=== PATIENT | male | born 1985 | race American Indian/Alaskan Native ===

== ENCOUNTER → 2020-10-19 14:07 | Outpatient (BNVA) | payer OTHER, SELFPAY | PROVIDERS: PCP Internal Medicine; Referring Provider Internal Medicine; Visit Provider Nurse Practitioner | DX: Z76.89 Persons encountering health services in other specified circumstances (principal) ==

== ENCOUNTER → 2020-11-30 09:25 | Outpatient (BNVA) | payer OTHER, SELFPAY | PROVIDERS: PCP Internal Medicine; Visit Provider Nurse Practitioner ==

== ENCOUNTER → 2020-12-28 08:42 | Outpatient (BNVA) | payer OTHER, SELFPAY | PROVIDERS: PCP Internal Medicine; Visit Provider Nurse Practitioner ==

== ENCOUNTER → 2021-01-17 10:53 | Outpatient (BNVA) | payer OTHER, SELFPAY | PROVIDERS: PCP Internal Medicine; Visit Provider Nurse Practitioner ==

== ENCOUNTER 2021-02-28 11:24 | Outpatient (REF) | payer OTHER, SELFPAY ==
[2021-02-28 13:02] LABS: COVID-19 Test Negative (Negative)
== END 2021-02-28 11:25 | disposition home or self-care (01) ==
LOC: HO.LAB 11:24
PROVIDERS: Visit Provider Internal Medicine
DX: Z20.822 Contact with and (suspected) exposure to COVID-19 (principal)
CPT/HCPCS: 36415; 87635; C9803

== ENCOUNTER 2021-03-04 12:51 | Outpatient (REF) | payer OTHER, SELFPAY ==
[2021-03-04 13:42] LABS: COVID-19 Test Negative (Negative)
== END 2021-03-04 12:52 | disposition home or self-care (01) ==
LOC: HO.LAB 12:51
PROVIDERS: Visit Provider Internal Medicine
DX: Z20.822 Contact with and (suspected) exposure to COVID-19 (principal)
CPT/HCPCS: 36415; 87635; C9803; U0003; U0005

== ENCOUNTER 2021-03-21 14:28 | Outpatient (REF) | payer OTHER, SELFPAY | END 2021-03-21 14:29 | disposition home or self-care (01) | LOC: HO.LAB 14:28 | PROVIDERS: Visit Provider Internal Medicine | DX: Z20.822 Contact with and (suspected) exposure to COVID-19 (principal) | CPT/HCPCS: C9803; U0003; U0005 ==

== ENCOUNTER 2021-07-01 10:01 | Outpatient (REF) | payer OTHER, SELFPAY | END 2021-07-01 10:02 | disposition home or self-care (01) | LOC: HO.LAB 10:01 | PROVIDERS: PCP Internal Medicine; Visit Provider Internal Medicine | DX: Z20.822 Contact with and (suspected) exposure to COVID-19 (principal) | CPT/HCPCS: C9803; U0003; U0005 ==

== ENCOUNTER 2021-11-15 10:17 | Outpatient (REF) | payer OTHER, SELFPAY ==
[2021-11-15 11:31] LABS: Binax Now Covid-19 Ag Positive (Negative)
[2021-11-15 11:32] LABS: Binax Internal Control QC Valid
== END 2021-11-15 10:18 | disposition home or self-care (01) ==
LOC: HO.LAB 10:17
PROVIDERS: Visit Provider Internal Medicine
DX: Z20.822 Contact with and (suspected) exposure to COVID-19 (principal)
CPT/HCPCS: 36415; C9803

== ENCOUNTER 2022-10-18 10:59 | Emergency (ER) | payer OTHER, SELFPAY ==
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
[2022-10-18 11:19] VITALS: BP 136/84; BP 141/87; PULSE 90; PULSE 92; RESP 18; TEMP 36.3; O2SAT 100; BMI 26.7
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
[2022-10-18] MEDS: 0.9 % Sodium Chloride 1,000 ML 999 ML IV (11:41)
[2022-10-18 11:44] LABS: MANUAL DIFF FLAG NO
[2022-10-18 11:47] LABS: Basophils Absolute Auto 0.1 X10*3/uL (0.0-0.2); Eosinophils Absolute Auto 0.1 X10*3/uL (0.0-0.4); Eosinophils Percent Auto 0.5 % (0-4); Hematocrit 46.4 % (42.0-52.0); Hemoglobin 15.6 g/dl (14.0-18.0); Imm Gran Abs Auto 0.03 X10*3/uL (0.00-0.03); Imm Gran Pct Auto 0.3 % (0.0-0.4); Lymphocytes Absolute Auto 2.4 X10*3/uL (1.2-4.9); Lymphocytes Percent Auto 23.4 % (20-40); Mean Corpuscular HGB Conc 33.6 g/dl (31.0-36.0); Mean Corpuscular Hemoglobin 31.7 pg (27.0-33.0); Mean Corpuscular Volume 94.3 fL (80.0-98.0); Mean Platelet Volume 8.9 fL (9.4-12.4); Monocytes Absolute Auto 0.8 X10*3/uL (0.1-1.2); Monocytes Percent Auto 8.2 % (2-11); Neutrophils Absolute Auto 6.8 x10*3/uL (2.0-8.3); Neutrophils Percent Auto 66.6 % (45-73); Platelet Count 302 X10*3/uL (160-400); Red Blood Count 4.92 X10*6/uL (4.60-5.80); Red Cell Distribution Width 14.8 % (11.0-16.0); White Blood Count 10.2 X10*3/uL (4.8-10.8)
[2022-10-18 11:51] LABS: INTERNATIONAL NORM RATIO 0.9 (0.9-1.1); Prothrombin Time 10.8 SEC (10.0-13.1)
[2022-10-18 11:59] LABS: COVID-19 Test Negative (Negative); IDNOW Serial# 16C4AD1C
[2022-10-18 12:03] LABS: Alanine Aminotransferase 14 U/L (0-40); Albumin Level 4.4 g/dL (3.5-5.0); Alkaline Phosphatase 114 U/L (39-117); Anion Gap 14 (12-20); Aspartate Amino Transferase 34 U/L (5-37); Bilirubin Direct 0.2 mg/dL (0.0-0.5); Bilirubin Total 0.4 mg/dL (0.0-1.0); Blood Urea Nitrogen 8 mg/dL (9-16); Calcium 9.4 mg/dL (8.4-10.2); Carbon Dioxide 33 mmol/L (22-29); Chloride 105 mmol/L (96-108); Creatinine Clr Calc Pharmacy 92.2; Estimated Glomerular Filt Rate > 60; Ethanol 216 mg/dL; Glucose Random 105 mg/dL (60-115); Lipase 198 U/L (8-78); Magnesium 2.3 mg/dL (1.6-2.6); Potassium 4.1 mmol/L (3.3-5.1); Sodium 148 mmol/L (135-145); Total Protein 7.2 g/dL (6.5-8.0)
[2022-10-18 13:39] VITALS: BP 130/62; PULSE 93; RESP 18; TEMP 36.6; O2SAT 98
--- NOTE | 2022-10-18 13:44 | PC.NURSE ---
Report has been given to GLORIA Enriquez RN . Patient awaiting transport by EMS . patient aware of plan of care .
--- NOTE | 2022-10-18 13:51 | MHC.EDTECH ---
pt will be transferd to [facility] ed.Ambulance is booked with Lisa for a ALS transfer at 1400. RN aware of plan.
[2022-10-18] MEDS: LORazepam 1 MG TABLET PO (14:14)
== END 2022-10-18 14:51 | disposition short-term general hospital (02) ==
PROVIDERS: Physician Assistant; Emergency Provider Emergency Medicine
DX: S06.5XAA Traumatic subdural hemorrhage with loss of consciousness status unknown, initial encounter (principal); S06.2XAA Diffuse traumatic brain injury with loss of consciousness status unknown, initial encounter; Y04.8XXA Assault by other bodily force, initial encounter; F10.120 Alcohol abuse with intoxication, uncomplicated; Y90.7 Blood alcohol level of 200-239 mg/100 ml; G51.0 Bell's palsy; Z20.822 Contact with and (suspected) exposure to COVID-19; Y93.9 Activity, unspecified; Y92.9 Unspecified place or not applicable; Y99.9 Unspecified external cause status; Z79.899 Other long term (current) drug therapy
CPT/HCPCS: 36415; 70450; 72125; 80048; 80076; 82077; 83690; 83735; 85025; 85610; 87635; 96360; 96361; 99284; 99285

== ENCOUNTER 2024-02-05 08:55 | Emergency (ER) | payer OTHER, SELFPAY ==
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
[2024-02-05 09:23] VITALS: BP 112/80; PULSE 57; RESP 16; TEMP 36.6; O2SAT 97; BMI 25.1
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
[2024-02-05] MEDS: Butalb/Acetamin/Caff 50/325/40 TABLET 1 TAB PO (12:15)
[2024-02-05 12:31] VITALS: BP 115/68; PULSE 85; RESP 20; TEMP 37; O2SAT 100
== END 2024-02-05 12:31 | disposition home or self-care (01) ==
PROVIDERS: Emergency Provider Student in an Organized Health Care Education/Training Program; PCP Internal Medicine
DX: R51.9 Headache, unspecified (principal); Z87.828 Personal history of other (healed) physical injury and trauma
CPT/HCPCS: 70450; 99284

== ENCOUNTER 2024-02-24 14:45 | Outpatient (AMB) | payer OTHER, SELFPAY ==
[2024-02-24 15:01] VITALS: BP 112/70; BMI 25.0
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
== END 2024-02-24 15:39 | disposition home or self-care (01) ==
PROVIDERS: PCP Internal Medicine; Visit Provider Internal Medicine
DX: R51.9 Headache, unspecified (principal); F17.210 Nicotine dependence, cigarettes, uncomplicated
CPT/HCPCS: 99213

== ENCOUNTER 2024-06-03 09:35 | Emergency (ER) | payer OTHER, SELFPAY ==
[2024-06-03 09:45] VITALS: BP 114/74; PULSE 79; RESP 16; TEMP 36.9; O2SAT 95; BMI 25.8
--- NOTE | 2024-06-03 11:06 | ED.EYEPROB ---
HPI - Eye Problem General Chief complaint: Eye Problems Stated complaint: bump on eye Time Seen by Provider: 06/03/24 09:59 Source: patient Mode of arrival: ambulatory Limitations: no limitations History of Present Illness HPI Narrative: Patient is a 39-year-old male who presents emergency department for evaluation of a painful red lump to the left upper eyelid progressing over the past week. He has been applying warm moist compresses without any improvement. He denies any active drainage. He does not work lenses. Denies any history of having stye in the past Related Data Previous Rx's ?Medication ?Instructions ?Recorded fluticasone propionate 50 2 spray intranasal DAILY #16 grams 12/17/23 mcg/actuation nasal spray,suspension amoxicillin 500 mg capsule 500 mg PO BID 7 days #14 caps 02/24/24 ibuprofen 800 mg tablet 800 mg PO TID 30 days #90 tabs 02/24/24 nicotine 7 mg/24 hr daily 1 patch transdermal Q24H 14 days 02/24/24 transdermal patch #14 ea sumatriptan succinate 25 mg tablet 25 mg PO Q2-4H PRN migraine 02/24/24 headache 30 days #9 tabs amitriptyline 10 mg tablet 10 mg PO BEDTIME 30 days #30 tabs 03/22/24 erythromycin 5 mg/gram (0.5 %) eye 0.5 inch ophthalmic (eye) BID #3.5 06/03/24 ointment grams ibuprofen 600 mg tablet 600 mg PO TID PRN pain #30 tabs 06/03/24 Allergies Allergy/AdvReac Type Severity Reaction Status Date / Time No Known Allergies Allergy Verified 06/03/24 09:46 Review of Systems Review of Systems: Yes all other systems are reviewed and are negative [facility] Past Medical History Attestation statement: The following information was validated with the patient. Source: old records reviewed Medical History Acute otitis media Wyman palsy Surgical History History of cranial surgery Family History Family History Mother No problems noted. Father Alzheimer disease Diabetes Hypertension Brother HIV (human immunodeficiency virus infection) Brother In good health Sister In good health Sister In good health Son In good health Son In good health Father Alzheimer disease Diabetes Mother No problems noted. Family/Other Mental health disorder Substance use disorder Social History Social History (Updated 02/24/24 @ 15:32 by Kristina Henriquez MD) Housing: House Alcohol intake: current Alcohol intake frequency: a few times a month Alcohol type: hard liquor Patient Tobacco Use Status: Current everyday Tobacco user Cigarettes Per Day: 10 e-Cigarette/Vaping Use: Never Used Advance Directives: No Advance Directives Information Provided: Yes service: No Current occupational status: unemployed Cognitive needs: No Hearing needs: No Vision needs: No Physical Exam Vital Signs: Vital Signs: Last Vital Signs Temp 98.5 F 06/03/24 09:45 Pulse 79 06/03/24 09:45 Resp 16 06/03/24 09:45 BP 114/74 06/03/24 09:45 Pulse Ox 95 06/03/24 09:45 O2 Del Method Room Air 06/03/24 09:45 BMI result Body Mass Index 25.8 Appearance: Alert.?Oriented to person, place and time. No acute distress.?Normal affect. Eyes: Pupils equal, round and reactive to light.? Sclera noninjected. No conjunctival tinnitus. Left upper lid external hordeolum ENT: Pharynx normal.?? Neck: Normal inspection.? Neck supple.?? CVS: Heart sounds normal. Normal heart rate and rhythm.? Pulses normal.?? Respiratory: No respiratory distress.? Lung sounds clear to auscultation bilaterally?? Abdomen: Soft and non-tender. Normoactive bowel sounds. ? Skin: Skin warm and dry.? Normal skin color.? ? Extremities: No lower extremity edema.? Neuro: Moves all extremities spontaneously. Sensation intact bilaterally. Ambulates with normal steady gait. Medical Decision Making Medical Decision Making MDM Narrative: Patient is a 39-year-old male who presents emergency department for evaluation of a left eye concern as per HPI. Physical examination is consistent with a external hordeolum, mild blepharitis. Does not appear consistent with preseptal or septal cellulitis. Has mild mechanical ptosis, visual acuity minimally altered from comparison to the right. He has been applying warm moist compresses. We discussed continued course of treatment with this, in addition to topical erythromycin, outpatient follow-up with PCP/Ophthalmology as needed. Differential Diagnosis Differential Diagnoses: The differential diagnosis associated with the presentation includes (See narrative above) External Record Review External record reviewed: Outpatient record Prescription Management I considered prescription management with: Pain Medication and Antibiotic Discharge Plan Discharge Clinical Impression: Hordeolum Qualifiers: Hordeolum type: externum Laterality: left Eyelid: upper Qualified Code(s): H00.014 - Hordeolum externum left upper eyelid Patient Disposition: Home, Self-Care Instructions: Mable (ED) Additional Instructions: Apply warm moist compresses 3-4 times daily for 10-15 minutes. Gentle scrubbing of the upper eyelid with warm water and mild non scented soap/baby shampoo. You can take ibuprofen 200 mg, 3 tablets (600mg) every 6-8 hours as needed for pain, in addition to Tylenol 500 mg, 2 tablets (1,000mg) every 4-6 hours as needed for pain, but not to exceed 3 doses daily (3,000mg).? As discussed, topical antibiotics may sometimes decrease the swelling of the upper lid if there is an infectious pathology to this. However, if you do not notice any change with this does not necessarily mean you need to return to the emergency department. If your symptoms persist over the next few weeks you may consider following up with an natural resource specialist, they may consider further treatment Prescriptions: New erythromycin 5 mg/gram (0.5 %) ointment 0.5 inch ophthalmic (eye) BID Qty: 3.5 0RF ibuprofen 600 mg tablet 600 mg PO TID PRN (Reason: pain) Qty: 30 0RF No Action fluticasone propionate 50 mcg/actuation spray,suspension 2 spray intranasal DAILY Qty: 16 0RF amoxicillin 500 mg capsule 500 mg PO BID 7 Days Qty: 14 0RF amitriptyline 10 mg tablet 10 mg PO BEDTIME 30 Days Qty: 30 0RF ibuprofen 800 mg tablet 800 mg PO TID 30 Days Qty: 90 0RF nicotine 7 mg/24 hr patch 24 hour 1 patch transdermal Q24H 14 Days Qty: 14 0RF sumatriptan succinate 25 mg tablet 25 mg PO Q2-4H PRN (Reason: migraine headache) 30 Days Qty: 9 2RF Rx Instructions: do not exceed 8 doses per 24 hrs Referrals: Kristina Whaley MD [Primary Care Provider] - Print Language: Latvian
[2024-06-03 11:30] VITALS: BP 114/74; PULSE 79; RESP 16; TEMP 36.9; O2SAT 95
== END 2024-06-03 11:32 | disposition home or self-care (01) ==
PROVIDERS: Emergency Provider Emergency Medicine; PCP Internal Medicine
DX: H00.014 Hordeolum externum left upper eyelid (principal); H57.12 Ocular pain, left eye
CPT/HCPCS: 99282; 99283

== ENCOUNTER 2024-07-27 09:15 | Outpatient (AMB) | payer OTHER, SELFPAY ==
--- NOTE | 2024-07-27 09:20 | MHC.PC.OV ---
Vital Signs 07/27/24 09:21 Height 5 ft 5 in Weight 155 lb BMI 25.8 BP 122/74 Blood Pressure Location Lt brachial Position Sitting Intake Visit Reasons: Annual Exam Intake Note: Patient here for an Annual Physical Exam Karate Instructor Required: No School Psychometrist: Present (Karly Rondon CMA) Accompanied by: Self / Same As Patient Allergies No Known Allergies Allergy (Verified 07/27/24 09:45) Medication List - Last Reconciled 07/27/24 by Kristina Henriquez MD fluticasone propionate 50 mcg/actuation 2 sprays intranasal DAILY ibuprofen 800 mg PO TID 30 days nicotine 1 patch transdermal Q24H 14 days sumatriptan succinate 25 mg PO Q2-4H PRN 30 days Tobacco use date assessed: 02/24/24 Dental Screening Dental Screen Date: 02/24/24 HPI HPI Comments History of Present Illness Details This is a 39-year-old male that comes for his physical exam. He complains of memory loss, abdominal pain, chest pain at rest and testicular tenderness. He also has rectal bleeding. He has persistent headaches and I will restart him on amitriptyline because he took it for 2 days and did not find a difference. He also has some mild major depression and anxiety. He is an alcoholic and will be refer to [facility] which he said he has gone in the past. Vaccines up-to-date. [facility] Medical History (Updated 07/27/24 @ 10:14 by Kristina Henriquez MD) Acute otitis media Wyman palsy Surgical History History of cranial surgery Family History Mother No problems noted. Father Alzheimer disease Diabetes Hypertension Brother HIV (human immunodeficiency virus infection) Brother In good health Sister In good health Sister In good health Son In good health Son In good health Father Alzheimer disease Diabetes Mother No problems noted. Family/Other Mental health disorder Substance use disorder Social History Housing: House Alcohol intake: current Alcohol intake frequency: a few times a month Alcohol type: hard liquor Patient Tobacco Use Status: Current everyday Tobacco user Tobacco use type: Cigarette Cigarettes Per Day: 10 e-Cigarette/Vaping Use: Never Used service: No Current occupational status: unemployed Cognitive needs: No Hearing needs: No Vision needs: No Questionnaire PHQ-9 Over the last 2 weeks, how often have you been bothered by any of the following problems? 1. Little interest or pleasure in doing things: several days 2. Feeling down, depressed, or hopeless: several days 3. Trouble falling or staying asleep, or sleeping too much: not at all 4. Feeling tired or having little energy: several days 5. Poor appetite or overeating: several days 6. Feeling bad about yourself - or that you are a failure or have let yourself or your family down: not at all 7. Trouble concentrating on things, such as reading the newspaper or watching television: several days 8. Moving or speaking so slowly that other people could have noticed. Or the opposite - being so fidgety or restless that you have been moving around a lot more than usual: not at all 9. Thoughts that you would be better off or of hurting yourself in some way: not at all Total score: 5 Depression Screening Interpretation: Positive Depression Screening Follow-up: Existing condition, New Medication prescribed and Follow-up Visit Requested Depression Screening Done: Yes 65034 - PHQ-9 Billing: Yes Source: Developed by Drs. Emile Edmonds, Terri Alcantar, Cesar Ahmadi and colleagues, with an educational shahbaz from [employer]. Thrive Questionnaire Date Thrive assessed: 07/27/24 I am a: Patient What is your living situation today?: I have a steady place to live Within the past 12 months, did the food you bought not last and you didn't have the money to get more?: Sometimes True Within the past 12 months, did you worry whether your food would run out before you got money to buy more?: Sometimes True Do you have trouble paying for medicines?: Yes Do you have trouble getting transportation to medical appointments?: No Do you have trouble paying your heating and electricity bill?: Yes Do you have trouble taking care of your child, family member or friend?: No Do you have trouble with day-to-day activities such as bathing, preparing meals, shopping, managing finances, etc.?: No Are you currently unemployed and looking for a job?: Yes Are you interested in more education?: No Please select the resources that you would like help with: Food and Utilities Currently or been in a relationship where the following occur: No concerns reported THRIVE Score: 3 AUDIT C Alcohol Use Questionnaire (AUDIT-C) 1. How often do you have a drink containing alcohol?: 2-3 times a week 2. How many drinks containing alcohol do you have on a typical day when you are drinking?: 5 or 6 3. How often do you have six or more drinks on one occasion?: Monthly Total Score: 7 Score Reviewed/Action Taken: Yes (refer to [facility]) TORIE-7 AMB Questionnaire TORIE-7 Date TORIE - 7 assessed: 07/27/24 Feeling nervous, anxious, or on edge: 2 = More than half the days Not being able to stop or control worryin = More than half the days Worrying too much about different things: 2 = More than half the days Trouble relaxin = Several days Being so restless that it is hard to sit still: 1 = Several days Becoming easily annoyed or irritable: 2 = More than half the days Feeling afraid as if something awful might happen: 0 = Not at all Total TORIE-7 score (0-4 normal; 5-9 mild; 10-14 moderate; 15-21 severe): 10 Source: Developed by Drs. Emile Edmonds, Terri Alcantar, Cesar Ahmadi and colleagues, with an educational shahbaz from [employer]. TORIE-7 Assessment Billing TORIE-7 Assessment Tool: TORIE-7 Assessment 81016 Review of Systems Const All systems reviewed & are unremarkable except as noted in HPI and below Reports headache(s) ENT Reports headache(s) Card Reports chest pain at rest, Denies chest pain with activity, Denies edema, Denies irregular heart rhythm, Denies claudication, Denies dyspnea, Denies dyspnea on exertion, Denies orthopnea, Denies paroxysmal nocturnal dyspnea and Denies slow heart rate Resp Denies cough, Denies dyspnea and Denies dyspnea on exertion GI Reports abdominal pain, Denies change in bowel habits, Denies excessive flatus, Denies nausea and Denies vomiting Reports testicular pain, Denies urinary hesitancy, Denies urinary incontinence and Denies urinary urgency Musc Denies abnormal gait, Denies atrophy, Denies deformity and Denies limited range of motion Skin/Breast Denies bleeding lesions, Denies changing lesions and Denies rash Neuro Denies abnormal gait, Denies behavioral changes, Reports headache(s), Denies lack of coordination and Reports memory loss Psych Reports abnormal sleep pattern, Reports anxiety, Denies behavioral changes, Reports depression and Reports memory loss Physical exam (Primary Care) Vital Signs: Last Vital Signs BP 122/74 07/27/24 09:21 BMI result Body Mass Index 25.8 Tobacco/Smoking Status: Tobacco use Status Tobacco use date assessed 02/24/24 07/27/24 09:28 Patient Tobacco Use Status Current everyday Tobacco 07/27/24 09:28 Tobacco use type Cigarette 07/27/24 09:32 e-Cigarette/Vaping Use Never Used 07/27/24 09:28 Are you ready to quit: Yes Tobacco cessation counseling provided: Yes Items discussed: Nicotine replacement and QuitWorks Relapse Prevention: discussed the importance of a supportive environment, discussed negative mood or depression after quitting, weight gain after smoking is common and discussed dietary, exercise and/or lifestyle changes Number of minutes spent counselin CPT code: 24578 - 4-10 Minutes PHQ-9: PHQ-9 Score PHQ-9: Total score 5 07/27/24 09:28 Depression Screening Interpretation: Positive Depression Screening Follow-up: Existing condition, New Medication prescribed and Follow-up Visit Requested Thrive Assessment: Date of Thrive Assessment Date Thrive assessed 07/27/24 07/27/24 09:28 Currently or been in a relationship where the following occur: No concerns reported HENMT Head: Yes normal to inspection, Yes normocephalic and Yes atraumatic Ears: external ears normal Eyes General: appearance normal, both eyes and all related structures Eyelids: Yes eyelids normal Conjunctivae: conjunctivae normal Neck Neck: Yes normal visual inspection and Yes supple Resp Effort & Inspection: normal respiratory effort Auscultation: clear to auscultation bilaterally Cardio Jugular venous distension: no JVD Rate: regular rate Rhythm: regular rhythm Heart sounds: S1 normal heart sound present and S2 normal heart sound present GI Inspection: Yes normal to inspection Palpation (GI): Soft to palpation and Tenderness to palpation present (GI) in the epigastrum, in the LLQ, in the RLQ, in the LUQ, in the RUQ and periumbilically Auscultation: normal bowel sounds Rectal Exam - Male: Yes normal sphincter tone Male General Exam: Yes normal external exam Scrotum: scrotum normal Testes: Testes normal Skin General skin exam: no rashes or lesions noted Neuro General: no focal motor deficits Extrem General: Yes full ROM Psych Appearance: grossly normal Assessment and Plan Assessment & Plan (1) Physical exam: Code(s): Z00.00 - Encounter for general adult medical examination without abnormal findings Plan: Repeat in a year. (2) Persistent headaches: Code(s): R51.9 - Headache, unspecified Plan: Start rizatriptan as needed. Start magnesium and amitriptyline at bedtime. Follow-up with Neurology. (3) Alcoholism: Code(s): F10.20 - Alcohol dependence, uncomplicated Plan: Advised to cut down on drinking alcohol. Referred to comprehensive [facility]. (4) Abdominal pain: Code(s): R10.9 - Unspecified abdominal pain Plan: Ultrasound of the abdomen ordered. (5) Testicle tenderness: Code(s): N50.819 - Testicular pain, unspecified Plan: Ultrasound of the testicles ordered. (6) Memory loss: Code(s): R41.3 - Other amnesia Plan: Labs ordered. (7) Chest pain: Code(s): R07.9 - Chest pain, unspecified Plan: EKG ordered. (8) Mild major depression: Code(s): F32.0 - Major depressive disorder, single episode, mild Plan: Restart amitriptyline. Orders: Orders Complete Blood Count Auto Diff Today K62.5 - Hemorrhage of anus and rectum Comprehensive [place]. Panel Fast Today Z00.00 - Encounter for general adult medical examination without abnormal findings HIV Ab/Ag Today Z11.3 - Encounter for screening for infections with a predominantly sexual mode of transmission Syphilis Screen Today Z11.3 - Encounter for screening for infections with a predominantly sexual mode of transmission CT NG by PCR Today Z11.3 - Encounter for screening for infections with a predominantly sexual mode of transmission ECG 12 lead EKG Today R07.9 - Chest pain, unspecified US abdomen comp w elastography Today R10.9 - Unspecified abdominal pain US scrotum Today N50.819 - Testicular pain, unspecified IRON PROFILE Today K62.5 - Hemorrhage of anus and rectum Lipid Panel Today E78.5 - Hyperlipidemia, unspecified, Z00.00 - Encounter for general adult medical examination without abnormal findings Thyroid Stimulating Hormone Today R41.3 - Other amnesia Vitamin B12 and Folate Today R41.3 - Other amnesia Referrals Addiction Medicine Referral F10.20 - Alcohol dependence, uncomplicated Gastroenterology Referral K62.5 - Hemorrhage of anus and rectum Medications: New rizatriptan do not exceed 3 doses per 24 hrs 10 mg PO Q2-4H 30 days PRN 5 tabs 0RF migraine headache R51.9 - Headache, unspecified magnesium oxide 400 mg PO BEDTIME 90 days 90 caps 0RF R51.9 - Headache, unspecified amitriptyline 10 mg PO BEDTIME 30 days 30 tabs 0RF R51.9 - Headache, unspecified Refilled nicotine 1 patch transdermal Q24H 14 days 14 ea 0RF F17.200 - Nicotine dependence, unspecified, uncomplicated ibuprofen 800 mg PO TID 30 days 90 tabs 0RF J32.9 - Chronic sinusitis, unspecified Discontinued sumatriptan succinate do not exceed 8 doses per 24 hrs Discontinued Reason: Patient Completed Course 25 mg PO Q2-4H 30 days PRN 9 tabs 2RF migraine headache Coding Level of Care Code Est Pt Level 4 (49157) Est Pt Prev Care 40-64y(58147) Diagnoses Physical exam Z00.00 Persistent headaches R51.9 Alcoholism F10.20 Abdominal pain R10.9 Testicle tenderness N50.819 Memory loss R41.3 Chest pain R07.9 Mild major depression F32.0 Additional Codes TORIE-7 Assessment Billing - TORIE-7 Assessment Tool: TORIE-7 Assessment 24380 ([id number]) Vital Signs *Quality* - CPT code: 55552 - 4-10 Minutes ([id number]) Time Spent (min) 45
[2024-07-27 09:21] VITALS: BP 122/74; BMI 25.8
== END 2024-07-27 10:13 | disposition home or self-care (01) ==
PROVIDERS: PCP Internal Medicine; Visit Provider Internal Medicine
DX: Z00.00 Encounter for general adult medical examination without abnormal findings (principal); R51.9 Headache, unspecified; F10.20 Alcohol dependence, uncomplicated; F32.0 Major depressive disorder, single episode, mild; F17.210 Nicotine dependence, cigarettes, uncomplicated; R10.9 Unspecified abdominal pain; R41.3 Other amnesia; N50.819 Testicular pain, unspecified; R07.9 Chest pain, unspecified

== ENCOUNTER 2024-07-27 09:15 | Outpatient (REF) | payer OTHER, SELFPAY ==
--- NOTE | 2024-07-27 11:32 | ECG_ITS ---
Test Reason : Chest Pain R07.9 Blood Pressure : / mmHG Vent. Rate : 061 BPM Atrial Rate : 061 BPM P-R Int : 146 ms QRS Dur : 092 ms QT Int : 372 ms P-R-T Axes : 056 032 046 degrees QTc Int : 374 ms Normal sinus rhythm Normal ECG When compared with ECG of 12-APR-2019 09:35, No significant change was found Referred By: Kristina Henriquez Electronically Signed By:ALYSSA LAWS
[2024-07-27 11:52] LABS: MANUAL DIFF FLAG NO
[2024-07-27 13:29] LABS: Basophils Absolute Auto 0.1 X10*3/uL (0.0-0.2); Basophils Percent Auto 1.4 % (0-2); Eosinophils Absolute Auto 0.1 X10*3/uL (0.0-0.4); Eosinophils Percent Auto 1.7 % (0-4); Hematocrit 42.4 % (42.0-52.0); Hemoglobin 14.6 g/dl (14.0-18.0); Imm Gran Abs Auto 0.02 X10*3/uL (0.00-0.03); Imm Gran Pct Auto 0.3 % (0.0-0.4); Lymphocytes Absolute Auto 2.2 X10*3/uL (1.2-4.9); Lymphocytes Percent Auto 33.3 % (20-40); Mean Corpuscular HGB Conc 34.4 g/dl (31.0-36.0); Mean Corpuscular Hemoglobin 32.2 pg (27.0-33.0); Mean Corpuscular Volume 93.4 fL (80.0-98.0); Mean Platelet Volume 9.6 fL (9.4-12.4); Monocytes Absolute Auto 0.6 X10*3/uL (0.1-1.2); Monocytes Percent Auto 8.3 % (2-11); Neutrophils Absolute Auto 3.7 x10*3/uL (2.0-8.3); Platelet Count 313 X10*3/uL (160-400); Red Blood Count 4.54 X10*6/uL (4.60-5.80); Red Cell Distribution Width 13.6 % (11.0-16.0); White Blood Count 6.6 X10*3/uL (4.8-10.8)
[2024-07-27 14:26] LABS: Thyroid Stimulating Hormone 1.74 uIU/mL (0.32-4.0)
[2024-07-27 14:27] LABS: Anion Gap 11 (12-20)
[2024-07-27 14:32] LABS: Alanine Aminotransferase 16 U/L (0-40); Albumin Level 4.2 g/dL (3.5-5.0); Alkaline Phosphatase 93 U/L (39-117); Aspartate Amino Transferase 15 U/L (5-37); Bilirubin Total 0.4 mg/dL (0.0-1.0); Blood Urea Nitrogen 11 mg/dL (9-16); Calcium 9.7 mg/dL (8.4-10.2); Carbon Dioxide 27 mmol/L (22-29); Chloride 109 mmol/L (96-108); Cholesterol 195 mg/dL (<200); Estimated Glomerular Filt Rate > 60; Glucose Fasting 93 mg/dL (60-99); HDL Cholesterol 69 mg/dL (>40); Iron 69 mcg/dL (45-160); LDL Cholesterol Calculated 111 mg/dL (<100); Percent Iron Saturation 25 % (15-50); Potassium 3.7 mmol/L (3.3-5.1); Sodium 143 mmol/L (135-145); Total Iron Binding Capacity 278 mcg/dL (228-428); Total Protein 7.1 g/dL (6.5-8.0); Triglycerides 75 mg/dL (<150); Unsaturated Iron Binding 209 ug/dL
[2024-07-27 14:38] LABS: Folate 7.9 ng/mL (> or = 4.0); Vitamin B12 257 pg/mL (200-900)
[2024-07-28 07:38] LABS: HIV AB/AG Nonreactive (Nonreactive); HIV Num 1 0.05 S/CO (0.00-0.99); Syphilis Screen Nonreactive (Nonreactive)
== END 2024-07-27 09:16 | disposition home or self-care (01) ==
LOC: HO.LAB 09:15
PROVIDERS: PCP Internal Medicine; Visit Provider Internal Medicine
DX: Z00.00 Encounter for general adult medical examination without abnormal findings (principal); R10.9 Unspecified abdominal pain; R07.9 Chest pain, unspecified; N50.819 Testicular pain, unspecified; K62.5 Hemorrhage of anus and rectum; F10.20 Alcohol dependence, uncomplicated; R51.9 Headache, unspecified; R41.3 Other amnesia; F32.0 Major depressive disorder, single episode, mild; Z11.3 Encounter for screening for infections with a predominantly sexual mode of transmission
CPT/HCPCS: 80053; 80061; 82607; 82746; 83540; 84443; 85025; 86780; 87389; 93005; 96127; 99212; 99396

== ENCOUNTER 2024-08-03 08:54 | Outpatient (AMB) | payer OTHER, SELFPAY ==
--- NOTE | 2024-08-03 08:56 | MHC.OFFVIS ---
Vital Signs 08/03/24 08:58 Height 5 ft 5 in Weight 154 lb 5.177 oz BMI 25.7 BP 121/82 Blood Pressure Location Lt brachial Position Sitting Pulse 66 Intake Visit Reasons: Hemorrhage of anus and rectum Intake Note: Rafael presents in the office as a new patient for Hemorrhage of anus. CC: He states that he has specs of blood after her has a BM. He states that his BM are regular - no concerns. Has pains in the stomach for the past week and a half that starts in the lower abdomen and radiates down to his testicles. Manager Insurance Required: No Allergies No Known Allergies Allergy (Verified 08/03/24 08:58) HPI Comments Details: 39 M with PMH of who is here for rectal bleeding. Pt reports seeing blood on wiping x 1 month. Reports occ straining and then notes small amounts of bright red blood on TP. No change in bowel habits with this. Does have fam hx of CRC in his brother - dx at age 40 and within a few years. Pt has never had a colo. Pt also reports occ epigastric discomfort with bloating. Takes ibuprofen 800 BID-TID every day x months. No ppi on board. Also drinks heavily 1-1.5pint of rum daily. Labs reviewed no anemia, LFTs normal. [facility] Medical History Acute otitis media Wyman palsy Surgical History History of cranial surgery Family History Mother No problems noted. Father Alzheimer disease Diabetes Hypertension Brother HIV (human immunodeficiency virus infection) Colon cancer Brother In good health Sister In good health Sister In good health Son In good health Son In good health Father Alzheimer disease Diabetes Mother No problems noted. Family/Other Mental health disorder Substance use disorder Social History Housing: House Alcohol intake: current Alcohol intake frequency: a few times a month Alcohol type: hard liquor Patient Tobacco Use Status: Current everyday Tobacco user Tobacco use type: Cigarette Cigarettes Per Day: 10 e-Cigarette/Vaping Use: Never Used service: No Current occupational status: unemployed Cognitive needs: No Hearing needs: No Vision needs: No Review of Systems Const All systems reviewed & are unremarkable except as noted in HPI and below Physical Exam Vital Signs: Last Vital Signs Pulse 66 08/03/24 08:58 BP 121/82 08/03/24 08:58 BMI result Body Mass Index 25.7 No apparent distress Nonicteric Abdomen soft, nondistended rectal: no ext hemorrhoids, no fissure, int hemorrhoids small Alert and oriented x3, normal gait Assessment & Plan Assessment & Plan (1) Abdominal pain: Code(s): R10.9 - Unspecified abdominal pain Category: Medical (2) Rectal bleeding: Code(s): K62.5 - Hemorrhage of anus and rectum Category: Medical (3) Family history of colon cancer: Code(s): Z80.0 - Family history of malignant neoplasm of digestive organs Category: Medical (4) longterm (current) use of non-steroidal anti-inflammatories (nsaid): Code(s): Z79.1 - longterm (current) use of non-steroidal anti-inflammatories (NSAID) Category: Medical (5) Alcohol use disorder: Code(s): F10.90 - Alcohol use, unspecified, uncomplicated Category: Medical Plan 1. Rectal bleeding. Likely from hemorrhoids. However given fam hx also at high risk for crc and therefore colo indicated. Plan: - Fiber supplementation - Sitz baths - Anusol topical NE x 14 days - Taylor to be booked - PEG instructions reviewed 2 Abd pain. DDx PUD, gastritis from nsaids vs etOH. Pt counseled extensively on senior care nsaid use. Was not aware that could take tylenol. He is also working on etOH use and will be seeing addiction medical secretary through [facility] Plan: - STOP nsaids - Start omeprazole 20 once daily - Cousneling for etOH cessation. Pt also seeing comprehensive care center soon. - US Abd already cristiane for 08/08 - Tylenol up to 2g/day is ok - Celebrex 100 BID PRN for breakthrough headache despite tylenol - No red flags to warrant EGD at this time but can be added if sx do not resolve despite the aforementioned measures Follow up after procedure Medications: New peg 3350-electrolytes 236-22.74-6.74 -5.86 gram (Golytely) as per split prep instructions, until fecal effluent is clear 240 mL PO Q10M 4,000 mL 0RF colonoscopy celecoxib (Celebrex) 100 mg PO BID 14 days PRN 28 caps 0RF headache hydrocortisone 2.5% (Anusol-HC) 1 appl NE BEDTIME 14 days PRN 30 grams 0RF hemorrhoids omeprazole On empty stomach in the morning, 30-40 mins before breakfast 20 mg PO DAILY 90 days 90 caps 0RF abd pain Discontinued ibuprofen Discontinued Reason: Doctor's Order 800 mg PO TID 30 days 90 tabs 0RF J32.9 - Chronic sinusitis, unspecified Coding Level of Care Code New Pt Level 4 (51620) Diagnoses Abdominal pain R10.9 Rectal bleeding K62.5 Family history of colon cancer Z80.0 intermodal 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
[2024-08-03 08:58] VITALS: BP 121/82; PULSE 66; BMI 25.7
== END 2024-08-03 09:56 | disposition home or self-care (01) ==
PROVIDERS: PCP Internal Medicine; Visit Provider Internal Medicine
DX: R10.9 Unspecified abdominal pain (principal); K62.5 Hemorrhage of anus and rectum; Z80.0 Family history of malignant neoplasm of digestive organs; Z79.1 Long term (current) use of non-steroidal anti-inflammatories (NSAID); F10.90 Alcohol use, unspecified, uncomplicated
CPT/HCPCS: 99204

== ENCOUNTER → 2024-08-03 08:54 | Outpatient (BNVA) | payer OTHER, SELFPAY | PROVIDERS: PCP Internal Medicine; Visit Provider Internal Medicine | DX: K62.5 Hemorrhage of anus and rectum (principal); R10.9 Unspecified abdominal pain; Z80.0 Family history of malignant neoplasm of digestive organs; Z79.1 Long term (current) use of non-steroidal anti-inflammatories (NSAID) | CPT/HCPCS: 99202 ==

== ENCOUNTER 2024-08-31 09:39 | Outpatient (AMB) | payer OTHER, SELFPAY ==
[2024-08-31 09:42] VITALS: BMI 26.1
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
== END 2024-08-31 11:37 | disposition home or self-care (01) ==
PROVIDERS: PCP Internal Medicine; Visit Provider Nurse Practitioner Family
DX: G43.709 Chronic migraine without aura, not intractable, without status migrainosus (principal); S06.9XAA Unspecified intracranial injury with loss of consciousness status unknown, initial encounter; F09 Unspecified mental disorder due to known physiological condition; G24.3 Spasmodic torticollis; R20.2 Paresthesia of skin; F48.2 Pseudobulbar affect
CPT/HCPCS: 99204

== ENCOUNTER → 2024-08-31 09:39 | Outpatient (BNVA) | payer OTHER, SELFPAY | PROVIDERS: PCP Internal Medicine; Visit Provider Nurse Practitioner Family | DX: G43.709 Chronic migraine without aura, not intractable, without status migrainosus (principal); S06.9XAD Unspecified intracranial injury with loss of consciousness status unknown, subsequent encounter; F09 Unspecified mental disorder due to known physiological condition; G24.3 Spasmodic torticollis; R20.2 Paresthesia of skin; F48.2 Pseudobulbar affect | CPT/HCPCS: 99202 ==

== ENCOUNTER 2024-10-07 08:49 | Outpatient (REF) | payer OTHER, SELFPAY ==
--- NOTE | ~2024-10-07 | MR_ITS ---
EXAMINATION: MR BRAIN WITHOUT AND WITH CONTRAST MR CERVICAL SPINE WITHOUT CONTRAST CLINICAL INFORMATION: Intracranial injury. Loss of consciousness. Chung-white matter abnormalities in the anterior left temporal lobe. Injury. COMPARISON: CT head from 02/05/2024. TECHNIQUE: MRI of the brain was obtained using routine sequences without and following the administration of 7 mL of Gadavist intravenous contrast. MRI of the cervical spine was obtained using routine sequences without contrast. FINDINGS: Brain: No focal restricted diffusion is demonstrated to suggest acute or subacute cerebral ischemia. No evidence of acute hemorrhagic products on heme-sensitive imaging. Chronic encephalomalacia in the anterior aspects of the left greater than right frontal lobes with hemosiderin staining. No additional parenchymal signal abnormalities. The ventricles are normal in morphology and size. No abnormal mass effect. No midline shift. Normal appearance of the pituitary gland. Normal positioning of the cerebellar tonsils. Normal arterial and venous vascular flow voids are present. No abnormal contrast enhancement. Normal, homogeneous marrow signal. Mild mucosal thickening of the paranasal sinuses. No signal abnormalities within the mastoids. Cervical Spine: Normal anatomic alignment. Normal, homogeneous marrow signal throughout. The vertebral body heights are maintained. Mild disc degeneration from C3-C6. The spinal cord is normal in appearance. Limited evaluation of the soft tissues of the neck without demonstrated abnormalities. The flow voids of the major cervical vessels are maintained. Normal appearance of the cervicomedullary junction and visualized posterior fossa. SPINAL LEVELS: C2-C3: Normal annular contour. There is no uncovertebral joint arthropathy. There is mild bilateral facet joint arthropathy. There is no neural foraminal stenosis. There is no spinal canal stenosis. C3-C4: Minimal disc-osteophyte complex. There is mild bilateral uncovertebral joint arthropathy. There is mild bilateral facet joint arthropathy. There is mild bilateral neural foraminal stenosis. There is no spinal canal stenosis. C4-C5: Normal annular contour. There is no uncovertebral joint arthropathy. There is mild bilateral facet joint arthropathy. There is no neural foraminal stenosis. There is no spinal canal stenosis. C5-C6: Minimal disc-osteophyte complex. There is mild right and no left uncovertebral joint arthropathy. There is mild bilateral facet joint arthropathy. There is mild right and no left neural foraminal stenosis. There is no spinal canal stenosis. C6-C7: Minimal disc-osteophyte complex. There is mild right and no left uncovertebral joint arthropathy. There is no facet joint arthropathy. There is no neural foraminal stenosis. There is no spinal canal stenosis. C7-T1: Normal annular contour. There is no uncovertebral joint arthropathy. There is no facet joint arthropathy. There is no neural foraminal stenosis. There is no spinal canal stenosis. MR/MR head/brain wo/w con IMPRESSION: 1. No acute intracranial abnormalities. No abnormal intracranial enhancement. 2. Chronic encephalomalacia of the left greater than right frontal lobes. 3. Mild multilevel degenerative spondyloarthropathy of the cervical spine as described in detail above. No overt spinal canal stenosis or nerve root compression. Electronically signed by: Yeison Trotter DO 10/19/2024 01:37 PM [facility]
[2024-10-07] MEDS: gadobutroL 7.5 ML VIAL IVPUSH (09:57)
== END 2024-10-07 08:50 | disposition home or self-care (01) ==
LOC: HO.MRI 08:49
PROVIDERS: PCP Internal Medicine; Visit Provider Nurse Practitioner Family
DX: S06.9XAA Unspecified intracranial injury with loss of consciousness status unknown, initial encounter (principal); F09 Unspecified mental disorder due to known physiological condition; G24.3 Spasmodic torticollis; R20.2 Paresthesia of skin
CPT/HCPCS: 70553; 72141; A9585

== ENCOUNTER 2024-10-18 13:44 | Outpatient (REF) | payer OTHER, SELFPAY ==
--- NOTE | 2024-10-18 13:52 | EEG_ITS ---
FINDINGS: The waking background activity consists of a well defined 10 hertz moderate voltage posterior alpha frequency that attenuates well with eye opening while low voltage fast frequencies predominate anteriorly. Photic stimulation and hyperventilation are without activation. No focal, lateralizing, or paroxysmal discharges are seen. IMPRESSION: This waking EEG is within normal limits. MD NI Candelario/RUFUS / [phone]
== END 2024-10-18 13:45 | disposition home or self-care (01) ==
LOC: HO.NEURO 13:44
PROVIDERS: PCP Internal Medicine; Visit Provider Nurse Practitioner Family
DX: S06.9XAA Unspecified intracranial injury with loss of consciousness status unknown, initial encounter (principal); F09 Unspecified mental disorder due to known physiological condition
CPT/HCPCS: 95816

== ENCOUNTER 2024-11-16 16:13 | Emergency (ER) | payer OTHER, SELFPAY ==
[2024-11-16 16:33] VITALS: BP 138/91; PULSE 65; RESP 18; TEMP 36.5; O2SAT 95; BMI 26.6
--- NOTE | 2024-11-16 16:34 | ED_ITS ---
HPI - Eye Problem General Chief complaint: Eye Problems Stated complaint: L eye injury Time Seen by Provider: 11/16/24 17:43 Source: patient, RN notes reviewed and old records reviewed Mode of arrival: ambulatory Limitations: no limitations History of Present Illness ED Provider: Jaylon LOPEZ Narrative: Patient is a 39-year-old male with history of TBI, ETOH use d/o presenting to the emergency department with complaint of injury to his left eye. He reports that he was fooling around with his dog and his son on the floor at home and accidentally hit his left eye against a metal chair. Complains of burning and discomfort to the eye, foreign body sensation. Denies any blurred vision, double vision or other visual changes. He wears glasses but did not bring them with him to the emergency department. He does not wear contact lenses. chief complaint: eye pain Onset (ago): minute(s) Onset description: sudden Location: left eye Eye Symptoms: burning, redness and foreign body sensation Place: home Mechanism: direct trauma Severity: mild Associated symptoms: none Treatments Prior to Arrival: none Related Data Previous Rx's ?Medication ?Instructions ?Recorded fluticasone propionate 50 2 spray intranasal DAILY #16 grams 06/03/24 mcg/actuation nasal spray,suspension amitriptyline 10 mg tablet 10 mg PO BEDTIME 30 days #30 tabs 07/27/24 amoxicillin 500 mg tablet 500 mg PO BID 5 days #10 tabs 07/27/24 nicotine 7 mg/24 hr daily 1 patch transdermal Q24H 14 days 07/27/24 transdermal patch #14 ea celecoxib 100 mg capsule (Celebrex) 100 mg PO BID PRN headache 14 days 08/03/24 #28 caps hydrocortisone 2.5 % topical cream 1 appl DC BEDTIME PRN hemorrhoids 08/03/24 with perineal applicator 14 days #30 grams (Anusol-HC) peg 3350-electrolytes 236 240 ml PO Q10M colonoscopy #4,000 08/03/24 gram-22.74 gram-6.74 gram-5.86 mL gram solution (Golytely) triamcinolone acetonide 55 mcg 1 spray intranasal DAILY 30 days 08/14/24 nasal spray aerosol (Nasacort) #16.9 mL amitriptyline 10 mg tablet 10 - 20 mg (1 - 2 x 10 mg) PO 08/31/24 BEDTIME 30 days #60 tabs cyclobenzaprine 5 mg tablet 5 - 10 mg (1 - 2 x 5 mg) PO BID 08/31/24 PRN muscle spasm 30 days #60 tabs magnesium oxide 400 mg PO BEDTIME 90 days #90 caps 08/31/24 riboflavin (vitamin B2) 400 mg 400 mg PO DAILY 30 days #30 tabs 08/31/24 tablet sumatriptan succinate 100 mg tablet 50 - 100 mg (0.5 - 1 x 100 mg) PO 08/31/24 .COMPLEX PRN migraine headache 30 days #12 tabs imiquimod 5 % topical cream packet 1 appl topical 3XW 30 days #12 ea 09/14/24 omeprazole 20 mg capsule,delayed 20 mg PO QAM for pain #90 caps 10/31/24 release erythromycin 5 mg/gram (0.5 %) eye 0.5 inch ophthalmic (eye) BID #3.5 11/16/24 ointment grams Allergies Allergy/AdvReac Type Severity Reaction Status Date / Time No Known Allergies Allergy Verified 11/16/24 16:35 Review of Systems 2 Review of Systems: as per hpi Yes all other systems are reviewed and are negative Constitutional: Constitutional: Reports as per HPI [facility], [facility] Past Medical History Medical History (Updated 11/16/24 @ 18:43 by Kareen Iyer NP) GERD (gastroesophageal reflux disease) Acute otitis media Wyman palsy Surgical History History of cranial surgery Family History Family History Mother No problems noted. Father Alzheimer disease Diabetes Hypertension Brother HIV (human immunodeficiency virus infection) Colon cancer Brother In good health Sister In good health Sister In good health Son In good health Son In good health Father Alzheimer disease Diabetes Mother No problems noted. Family/Other Mental health disorder Substance use disorder Social History Social History Housing: House Alcohol intake: current Alcohol intake frequency: a few times a month Alcohol type: hard liquor Patient Tobacco Use Status: Current everyday Tobacco user Tobacco use type: Cigarette Cigarettes Per Day: 10 e-Cigarette/Vaping Use: Never Used Advance Directives: No Advance Directives Information Provided: No Do you have a plan to hurt others: No Plan service: No Current occupational status: unemployed Cognitive needs: No Hearing needs: No Vision needs: No Physical Exam 2 Vital Signs: Vital Signs: Last Vital Signs Temp 97.7 F 11/16/24 16:33 Pulse 65 11/16/24 16:33 Resp 18 11/16/24 16:33 BP 138/91 H 11/16/24 16:33 Pulse Ox 95 11/16/24 16:33 O2 Del Method Room Air 11/16/24 16:33 BMI result Body Mass Index 26.6 Vital signs have been reviewed and appear to be correct. Blood pressure normal. Heart rate normal. Respiratory rate normal. Temperature normal. Oxygen saturation normal. Const: General: cooperative, healthy appearing and no acute distress O rientation/consciousness: oriented to person, oriented to place, oriented to time and patient oriented x3 Limitations: no limitations HEENT: Head: Yes normocephalic and Yes atraumatic Ears: external ears normal General nose exam: Normal external nose present Face and sinus: Yes face symmetric Mouth: oropharynx normal and moist mucous membranes Throat: Yes uvula midline Eyes: Other: IOPs: OD 18, OS 17 Visual Mendez: normal visual mendez by confrontation Alignment and Position: alignment normal and position normal Conjunctivae: conjunctival abnormal left subconjunctival hemorrhage (lateral aspect left eye) Corneas: c orneas abnormal on the left fluorescein used and abrasion linear and at the following clock position (5:00) Pupils: Equal, round and reactive pupils present EOM: EOMs intact bilaterally Direct Ophthalmoscopy: normal light reflex and no photophobia Eyes/upper lids images: 1. ecchymosis with superficial 1mm laceration Neck: Neck: Yes normal visual inspection and Yes supple Resp: Effort & Inspection: normal respiratory effort and able to speak in complete sentences Auscultation: clear to auscultation bilaterally Cardio: Rate: regular rate Rhythm: regular rhythm Heart sounds: S1 normal heart sound present and S2 normal heart sound present GI: Palpation (GI): Soft to palpation and nontender Auscultation: n ormoactive bowel sounds : General: Yes no CVA tenderness Back/Spine/Pelvis: Back: no CVA tenderness Skin: General skin exam: elasticity normal and turgor normal Neuro: General: oriented to person, oriented to place, oriented to time, patient oriented x3, moves all extremities, no focal motor deficits and CN's II- XI intact bilaterally Cranial nerves: Yes Equal, round and reactive pupils present Cognition (Neuro): normal cognition Extrem: General: Yes full ROM, Yes no pedal edema and Yes no calf tenderness Psych: Mental Status: mental status grossly normal Affect: normal affect Thought process: Normal thought process present Course Course Course Narrative: This is a Rapid Medical Exam performed in triage by Dorothy Leavitt PA-C. Full HPI, ROS and PE to be performed by primary ED provider. 39yo M w/PMHx TBI, ETOH use d/o presenting to the ED c/o L eye pain/injury & FB sensation s/p accidentally hitting face/eye on metal chair s/p picking up toy on ground while playing with son. Wears glasses not contacts. +blurry vision initally, denies now or visual loss. Tetanus UTD PE: Laceration noted to infraorbital region with swelling and ecchymosis. + corneal abrasion appreciated to naked eye. EOMs intact Plan: Visual acuity, fluorescein staining Medical Decision Making Medical Decision Making [facility] Narrative: Patient is a 39-year-old male with history of TBI, ETOH use d/o presenting to the emergency department with complaint of injury to his left eye. On exam patient is awake, A+Ox3, VS WNL, afebrile, normal neurological exam without focal deficits, physical exam findings as above. Given reported symptoms and physical exam findings, initial differential includes but is not limited to corneal abrasion, globe injury, contusion, eyelid laceration. Unlikely orbital fracture. No evidence of globe rupture or retro bulbar hematoma. IOPs within normal limits. Corneal abrasion noted with fluorescein stain, also small subconjuctival hemorrhage. Laceration is minor and superficial, does not require repair. Will treat with erythromycin ointment, discussed with patient that subconjunctival hemorrhage will resolve on its own. Return precautions discussed with patient at bedside. Patient verbalized understanding of and agreement with plan. Differential Diagnosis Differential Diagnoses: The differential diagnosis associated with the presentation includes As per [facility] External Record Review External record reviewed: Inpatient record, Office record and Outpatient record Prescription Management I considered prescription management with: Antibiotic Discharge Plan Discharge Clinical Impression: Corneal abrasion, Subconjunctival hemorrhage, Eyelid laceration Patient Disposition: Home, Self-Care Instructions: Subconjunctival Hemorrhage (ED), Corneal Abrasion (DC), Facial Laceration (ED) Additional Instructions: You were evaluated in the emergency department today after an eye injury. Your evaluation showed a corneal abrasion, which is a small scratch the surface of your eye. You are being prescribed antibiotic ointment, use this as prescribed. You may continue to notice changes to the bruising around your eye, this is normal. Avoid touching or rubbing your eye. Your symptoms should slowly resolve on their own. Return to the emergency department or call your eye doctor if you develop changes in vision, severe eye pain, drainage from your eye or any other new or concerning symptoms. Prescriptions: New erythromycin 5 mg/gram (0.5 %) ointment 0.5 inch ophthalmic (eye) BID Qty: 3.5 0RF Rx Instructions: left eye No Action fluticasone propionate 50 mcg/actuation spray,suspension 2 spray intranasal DAILY Qty: 16 0RF amoxicillin 500 mg tablet 500 mg PO BID 5 Days Qty: 10 0RF triamcinolone acetonide [Nasacort] 55 mcg aerosol,spray 1 spray intranasal DAILY 30 Days Qty: 16.9 0RF Rx Instructions: administer into each nostril imiquimod 5 % cream in packet 1 appl topical 3XW 30 Days Qty: 12 1RF omeprazole 20 mg capsule,delayed release(DR/EC) 20 mg PO QAM Qty: 90 0RF sumatriptan succinate 100 mg tablet 50 - 100 mg PO .COMPLEX PRN (Reason: migraine headache) 30 Days Qty: 12 6RF Rx Instructions: 50 - 100 mg orally at onset of headache, may repeat in 2 hrs PRN; max 2 tabs per day or 4 tabs/week (may take with Tylenol) amitriptyline 10 mg tablet 10 - 20 mg PO BEDTIME 30 Days Qty: 60 3RF magnesium oxide 400 mg magnesium capsule 400 mg PO BEDTIME 90 Days Qty: 90 1RF riboflavin (vitamin B2) 400 mg tablet 400 mg PO DAILY 30 Days Qty: 30 6RF cyclobenzaprine 5 mg tablet 5 - 10 mg PO BID PRN (Reason: muscle spasm) 30 Days Qty: 60 3RF peg 3350-electrolytes [Golytely] 236-22.74-6.74 -5.86 gram recon soln 240 ml PO Q10M Qty: 4000 0RF Rx Instructions: as per split prep instructions, until fecal effluent is clear celecoxib [Celebrex] 100 mg capsule 100 mg PO BID PRN (Reason: headache) 14 Days Qty: 28 0RF hydrocortisone [Anusol-HC] 2.5 % cream with perineal applicator 1 appl DC BEDTIME PRN (Reason: hemorrhoids) 14 Days Qty: 30 0RF nicotine 7 mg/24 hr patch 24 hour 1 patch transdermal Q24H 14 Days Qty: 14 0RF amitriptyline 10 mg tablet 10 mg PO BEDTIME 30 Days Qty: 30 0RF Referrals: Geovani Johnson [Physician] - Print Language: Bulgarian
--- NOTE | 2024-11-16 17:48 | PC.NURSE ---
acuity testing performed but pt typically wears glasses and he did not have them with him
[2024-11-16 19:33] VITALS: BP 138/91; PULSE 65; RESP 18; TEMP 36.5; O2SAT 95
== END 2024-11-16 19:33 | disposition home or self-care (01) ==
PROVIDERS: Emergency Provider Emergency Medicine; PCP Internal Medicine
DX: S05.02XA Injury of conjunctiva and corneal abrasion without foreign body, left eye, initial encounter (principal); S01.112A Laceration without foreign body of left eyelid and periocular area, initial encounter; H11.32 Conjunctival hemorrhage, left eye; F17.210 Nicotine dependence, cigarettes, uncomplicated; W26.8XXA Contact with other sharp object(s), not elsewhere classified, initial encounter; Y93.89 Activity, other specified; Y92.89 Other specified places as the place of occurrence of the external cause; Y99.8 Other external cause status
CPT/HCPCS: 99282; 99283

== ENCOUNTER 2024-12-05 07:28 | Outpatient (AMB) | payer OTHER, SELFPAY ==
[2024-12-05 07:36] VITALS: BP 128/80; PULSE 71; O2SAT 96; BMI 27.5
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
== END 2024-12-05 08:18 | disposition home or self-care (01) ==
PROVIDERS: PCP Internal Medicine; Visit Provider Nurse Practitioner Family
DX: G43.709 Chronic migraine without aura, not intractable, without status migrainosus (principal); S06.9XAA Unspecified intracranial injury with loss of consciousness status unknown, initial encounter; F09 Unspecified mental disorder due to known physiological condition; R20.2 Paresthesia of skin; F48.2 Pseudobulbar affect; M54.2 Cervicalgia
CPT/HCPCS: 99214

== ENCOUNTER → 2024-12-05 07:28 | Outpatient (BNVA) | payer OTHER, SELFPAY | PROVIDERS: PCP Internal Medicine; Visit Provider Nurse Practitioner Family | DX: G43.709 Chronic migraine without aura, not intractable, without status migrainosus (principal); R20.2 Paresthesia of skin; F48.2 Pseudobulbar affect; M54.2 Cervicalgia; S06.9XAA Unspecified intracranial injury with loss of consciousness status unknown, initial encounter; X58.XXXA Exposure to other specified factors, initial encounter; Y93.9 Activity, unspecified; Y92.9 Unspecified place or not applicable; Y99.9 Unspecified external cause status | CPT/HCPCS: 99212 ==

== ENCOUNTER 2024-12-23 09:46 | Outpatient (AMB) | payer OTHER, SELFPAY ==
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
[2024-12-23 09:59] VITALS: BP 131/89; PULSE 63; O2SAT 99; BMI 27.0
--- OUTSIDE RECORDS SUMMARY | 2024-12-23 10:17 | XMS_ITS | Clinical Summary ---
Author Organization [employer] Address [address] [place] [address] Care Team Providers Care It Consulting Director Name Role Phone Unavailable Primary Care Provider Unavailabl e Social History Tobacco Use Types Packs/Day Years Used Date Smoking Tobacco: Never Assessed Sex and Gender Information Value Date Recorded Sex Assigned at Male 09/08/2022 10:14 AM EDT Legal Sex Male 10:14 AM EDT Gender Identity Not on file Sexual Orientation Not on file Plan of Treatment Health Maintenance Due Date Last Done Comments Depression Screening 1983 Lipid Panel 1983 Alcohol/Substance Use Screening 1995 Tobacco Screening 1995 Family Planning (PISQ) 1998 DTaP/Tdap/Td Vaccines (1 - Tdap) 2002 Hepatitis B Vaccines (1 of 3 - 19+ 3-dose series) 2002 COVID-19 Vaccine ( - 2023-2 5 season) 2024 Influenza Vaccine (#1) 2024 Zoster Vaccines (1 of 2) 2033 RSV Patients and Pa tients Aged 60 years or older (1 - 1-dose 75+ series) 2058 HIB Vaccines Aged Out No longer eligi ble based on patient's age to complete this topic HPV Vaccines Aged Out No longer eligi ble based on patient's age to complete this topic Hepatitis A Vaccines Aged Out No long er eligible based on patient's age to complete this topic IPV Vaccines Aged Out No longer eligi ble based on patient's age to complete this topic Meningococcal Vaccine Aged Out No jonna ada eligible based on patient's age to complete this topic Pneumococcal Vaccine: Pediat rics (0 to 5 Years) and At-Risk Patients (6 to 49) Years) Aged Out No longer eligible b ased on patient's age to complete this topic RSV under 20 months Aged Out No longe r eligible based on patient's age to complete this topic Rotavirus Vaccines Aged Out No longer eligible based on patient's age to complete this topic
--- OUTSIDE RECORDS SUMMARY | 2024-12-23 10:17 | XMS_ITS | Clinical Summary ---
Author Organization [facility] Address [address] [place] [address] Care Team Providers Care Electrical/Instrument Technician Name Role Phone Unavailable Primary Care Provider Unavailabl e Social History Tobacco Use Types Packs/Day Years Used Date Smoking Tobacco: Never Assessed Sex and Gender Information Value Date Recorded Sex Assigned at Not on file Gender Identity Not on file Sexual Orientation Not on file Plan of Treatment Not on file
== END 2024-12-23 10:23 | disposition home or self-care (01) ==
PROVIDERS: PCP Internal Medicine; Referring Provider Nurse Practitioner Family; Visit Provider Nurse Practitioner Family
DX: M54.2 Cervicalgia (principal); M47.812 Spondylosis without myelopathy or radiculopathy, cervical region; G43.709 Chronic migraine without aura, not intractable, without status migrainosus
CPT/HCPCS: 99204; G2211

== ENCOUNTER → 2024-12-23 09:46 | Outpatient (BNVA) | payer OTHER, SELFPAY | PROVIDERS: PCP Internal Medicine; Referring Provider Nurse Practitioner Family; Visit Provider Nurse Practitioner Family | DX: M47.812 Spondylosis without myelopathy or radiculopathy, cervical region (principal); G43.709 Chronic migraine without aura, not intractable, without status migrainosus | CPT/HCPCS: 99202 ==

== ENCOUNTER 2024-12-27 14:14 | Outpatient (AMB) | payer OTHER, SELFPAY ==
--- NOTE | 2024-12-27 14:19 | MHC.PC.OV ---
Vital Signs 12/27/24 14:21 Height 5 ft 5 in Weight 163 lb 4 oz BMI 27.2 BP 122/60 Blood Pressure Location Lt brachial Position Sitting Pulse 65 Pulse Source Pulse Oximeter Temp 97.3 F Temp Source Temporal Artery Scan Pulse Oximetry (%) 95 Oxygen Delivery Method Room Air Intake Visit Reasons: Hutson bite , in fingers Intake Note: Patient is here to follow up on Hutson bite in right hand. Apprentice/Lineman Required: No Relay Man: Not Required per policy Accompanied by: Self / Same As Patient Allergies No Known Allergies Allergy (Verified 12/27/24 14:20) Tobacco use date assessed: 12/27/24 Dental Screening Dental Screen Date: 12/27/24 Did you have a dental visit in the last 12 months?: No Did you have a dental problem in the last 6 months where you did not have access to dental care?: No Was dental information given to patient?: No HPI Hutson bite , in fingers HPI Details 39-year-old male with past medical history of nicotine dependence, headaches, alcoholism, depression, traumatic brain injury last seen by Dr. Adames 07/2024 coming in for acute problem. Presenting with sensitivity and discomfort in a finger after cold exposure. Symptoms originated four to five days ago while washing a car with water-soaked gloves. The sensation described includes burning pain when exposed to cold, suggesting possible nerve involvement. There is no previous history of similar issues. Compression test and sensation check indicate unimpaired function and normal blood perfusion in the affected finger. Interactions with heat cause the finger to return to normal temperature and feeling, although the issue recurs with cold exposure. [facility] Medical History Nicotine dependence TBI (traumatic brain injury) Cognitive dysfunction Memory loss Cervical dystonia Chronic idiopathic constipation Pseudobulbar affect Mild major depression Cervicalgia Chronic migraine without aura Alcohol use disorder GERD (gastroesophageal reflux disease) Acute otitis media Wyman palsy Surgical History History of cranial surgery Family History Mother No problems noted. Father Alzheimer disease Diabetes Hypertension Brother HIV (human immunodeficiency virus infection) Colon cancer Brother In good health Sister In good health Sister In good health Son In good health Son In good health Father Alzheimer disease Diabetes Mother No problems noted. Family/Other Mental health disorder Substance use disorder Social History Housing: House Alcohol intake: current Alcohol intake frequency: a few times a month Alcohol type: hard liquor Patient Tobacco Use Status: Current everyday Tobacco user Tobacco use type: Cigarette Cigarette Packs Per Day: 0.5 Cigarettes Per Day: 10 e-Cigarette/Vaping Use: Never Used Second Hand Smoke Exposure: Yes Substance Use Type: Marijuana service: No Current occupational status: unemployed Cognitive needs: No Hearing needs: No Vision needs: No Questionnaire PHQ-9 Over the last 2 weeks, how often have you been bothered by any of the following problems? 1. Little interest or pleasure in doing things: not at all 2. Feeling down, depressed, or hopeless: not at all 3. Trouble falling or staying asleep, or sleeping too much: not at all 4. Feeling tired or having little energy: not at all 5. Poor appetite or overeating: not at all 6. Feeling bad about yourself - or that you are a failure or have let yourself or your family down: not at all 7. Trouble concentrating on things, such as reading the newspaper or watching television: not at all 8. Moving or speaking so slowly that other people could have noticed. Or the opposite - being so fidgety or restless that you have been moving around a lot more than usual: not at all 9. Thoughts that you would be better off or of hurting yourself in some way: not at all Total score: 0 Depression Screening Interpretation: Negative Depression Screening Done: Yes Source: Developed by Drs. Emile Edmonds, Terri Alcantar, Cesar Ahmadi and colleagues, with an educational shahbaz from [employer]. Thrive Questionnaire Date Thrive assessed: 12/27/24 AUDIT C Alcohol Use Questionnaire (AUDIT-C) 1. How often do you have a drink containing alcohol?: 2-3 times a week 2. How many drinks containing alcohol do you have on a typical day when you are drinking?: 1 or 2 Total Score: 3 TORIE-7 AMB Questionnaire TORIE-7 Date TORIE - 7 assessed: 12/27/24 Feeling nervous, anxious, or on edge: 0 = Not at all Not being able to stop or control worryin = Not at all Worrying too much about different things: 0 = Not at all Trouble relaxin = Not at all Being so restless that it is hard to sit still: 0 = Not at all Becoming easily annoyed or irritable: 0 = Not at all Feeling afraid as if something awful might happen: 0 = Not at all Total TORIE-7 score (0-4 normal; 5-9 mild; 10-14 moderate; 15-21 severe): 0 Source: Developed by Drs. Emile Edmonds, Terri Alcantar, Cesar Ahmadi and colleagues, with an educational shahbaz from [employer]. Review of Systems Const Denies body aches, Denies chills, Denies fever(s) and Denies poor appetite Eyes Reports no additional complaints ENT Reports no additional complaints Card Reports no additional complaints Resp Reports no additional complaints GI Reports no additional complaints Reports no additional complaints Musc Reports no additional complaints and Denies abnormal gait Skin/Breast Reports system reviewed and no additional complaints, except as documented Neuro Denies abnormal gait Psych Reports no additional complaints Physical exam (Primary Care) Vital Signs: Last Vital Signs Temp 97.3 F 12/27/24 14:21 Pulse 65 12/27/24 14:21 BP 122/60 12/27/24 14:21 Pulse Ox 95 12/27/24 14:21 Oxygen Delivery Method Room Air 12/27/24 14:21 BMI result Body Mass Index 27.2 Tobacco/Smoking Status: Tobacco use Status Tobacco use date assessed 12/27/24 12/27/24 14:24 Patient Tobacco Use Status Current everyday Tobacco 12/27/24 14:24 Tobacco use type Cigarette 12/27/24 14:24 e-Cigarette/Vaping Use Never Used 12/27/24 14:24 PHQ-9: PHQ-9 Score PHQ-9: Total score 0 12/27/24 14:30 Depression Screening Interpretation: Negative Thrive Assessment: Date of Thrive Assessment Date Thrive assessed 12/27/24 12/27/24 14:24 Const General: cooperative, healthy appearing, comfortable and no acute distress Orientation/consciousness: patient oriented x3 HENMT Head: Yes normocephalic Ears: hearing grossly normal bilaterally General nose exam: Normal external nose present Eyes General: appearance normal, both eyes and all related structures Conjunctivae: conjunctivae normal Neck Neck: Yes full ROM and Yes no lymphadenopathy Resp Effort & Inspection: normal respiratory effort Auscultation: clear to auscultation bilaterally, no crackles, no rales, no rhonchi and no wheezes Cardio Rate: regular rate Rhythm: regular rhythm Skin General skin exam: no rashes or lesions noted Neuro General: patient oriented x3 Gait exam (Neuro): Normal gait present Extrem Other: Strength, sensation, pulses intact in bilateral upper extremities. No neurological deficit in right hand General: Yes normal to inspection, Yes full ROM and No edema Psych Affect: normal affect Attitude: cooperative Insight: Good insight present (Psych) Judgement: Good judgement present (Psych) Coding Level of Care Code Est Pt Level 3 (73391) Diagnoses Finger pain, right M79.644 Assessment & Plan Assessment & Plan (1) Finger pain, right: Code(s): M79.644 - Pain in right finger(s) Category: Medical Plan: The current management plan focuses on the patient's report of cold-induced discomfort and sensitivity in the finger, hypothesized to be related to minimal nerve impairment rather than frostbite. With normal physical exam findings, preventive actions include avoiding cold exposure and observing for any worsening symptoms such as discoloration, numbness or loss of motion. Should symptoms persist without improvement, a nerve study will be considered to further elucidate the condition. Plan This note was constructed using voice recognition software. While every effort has been made to ensure accuracy and senior java web developer, still areas may have been included sometimes these areas may affect the content or meeting of the given symptoms. Total time spent caring for the patient today was 20 minutes. This includes time spent before the visit reviewing the chart, time spent during the visit, and time spent after the visit and documentation. Medications: Refilled nicotine 1 patch transdermal Q24H 14 days 14 ea 0RF F17.200 - Nicotine dependence, unspecified, uncomplicated
[2024-12-27 14:21] VITALS: BP 122/60; PULSE 65; TEMP 36.3; O2SAT 95; BMI 27.2
--- OUTSIDE RECORDS SUMMARY | 2024-12-27 15:14 | XMS_ITS | Clinical Summary ---
Author Organization [employer] Address [address] [place] [address] Care Team Providers Care Branch Sales Manager Name Role Phone Unavailable Primary Care Provider [...]
--- OUTSIDE RECORDS SUMMARY | 2024-12-27 15:14 | XMS_ITS | Clinical Summary ---
Author Organization [facility] Address [address] [place] [address] Care Team Providers Care Animal Control Supervisor Name Role Phone Unavailable Primary Care Provider Unavailabl e Social History Tobacco Use Types Packs/Day Years Used Date Smoking Tobacco: Never Assessed Sex and Gender Information Value Date Recorded Sex Assigned at Not on file Gender Identity Not on file Sexual Orientation Not on file Plan of Treatment Not on file
== END 2024-12-27 14:40 | disposition home or self-care (01) ==
PROVIDERS: PCP Internal Medicine
DX: M79.644 Pain in right finger(s) (principal)

== ENCOUNTER → 2024-12-27 14:14 | Outpatient (BNVA) | payer OTHER, SELFPAY | PROVIDERS: PCP Internal Medicine; Visit Provider Internal Medicine | DX: M79.644 Pain in right finger(s) (principal) | CPT/HCPCS: 99212 ==

== ENCOUNTER 2025-08-03 14:28 | Outpatient (AMB) | payer OTHER, SELFPAY ==
[2025-08-03 14:50] VITALS: BP 130/90; PULSE 65; O2SAT 97; BMI 27.4
--- NOTE | 2025-08-03 14:50 | MHC.PC.OV ---
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 Required: No Accompanied by: Self / Same As Patient Allergies No Known Allergies Allergy (Verified 08/03/25 15:11) Medication List - Last Reconciled 08/03/25 by Kristina Henriquez MD diclofenac potassium 50 mg PO Q12H PRN 30 days fluticasone propionate 50 mcg/actuation 2 sprays intranasal DAILY hydrocortisone 2.5% (Anusol-HC) 1 appl ND BEDTIME PRN 14 days ibuprofen 800 mg PO TID magnesium oxide 400 mg PO BEDTIME 90 days nicotine 1 patch transdermal Q24H 14 days omeprazole 20 mg PO QAM peg 3350-electrolytes 236-22.74-6.74 -5.86 gram (Golytely) 240 mL PO Q10M propranolol ER 60 mg PO BEDTIME 30 days riboflavin (vitamin B2) 400 mg PO DAILY 90 days sumatriptan succinate 50 - 100 mg orally at onset of headache, may repeat in 2 hrs PRN; max 2 tabs per day or 4 tabs/week (may take with Tylenol) 30 days triamcinolone acetonide (Nasacort) 1 spray intranasal DAILY 30 days Tobacco use date assessed: 08/03/25 Dental Screening Dental Screen Date: 08/03/25 Did you have a dental visit in the last 12 months?: No Did you have a dental problem in the last 6 months where you did not have access to dental care?: No Was dental information given to patient?: No HPI HPI Comments History of Present Illness Details The patient is a 40-year-old male presenting for his physical exam. He has a history of migraine, managed with sumatriptan, and reports having a small supply left. Additionally, he uses another medication for migraine management, prescribed by a neurologist. The patient also presents with essential tremor, managed with propranolol, and reports no current exacerbation of symptoms. The patient has a history of gastroesophageal reflux disease, managed with omeprazole, and reports adherence to the medication regimen. The patient is a smoker, previously using nicotine patches to reduce smoking from a pack a day to about six cigarettes daily. He expresses interest in continuing nicotine replacement therapy to further reduce smoking. In terms of family history, the patient's father had Alzheimer's disease, diabetes, and depression, and this year. There is also a family history of colon cancer on the paternal side, with an uncle affected. The patient underwent cranial surgery in 2012 for a fracture repair. Complains of neck pain and would like physical therapy. Has history of mild depression and alcoholism and was advised to cut down on drinking alcohol. [facility] Medical History Nicotine dependence TBI (traumatic brain injury) Cognitive dysfunction Memory loss Cervical dystonia Chronic idiopathic constipation Pseudobulbar affect Mild major depression Cervicalgia Chronic migraine without aura Alcohol use disorder GERD (gastroesophageal reflux disease) Acute otitis media Wyman palsy Surgical History History of cranial surgery Family History (Updated 08/03/25 @ 15:17 by Kristina Henriquez MD) Mother No problems noted. Father Alzheimer disease Diabetes Hypertension Brother HIV (human immunodeficiency virus infection) Colon cancer Brother In good health Sister In good health Sister In good health Son In good health Son In good health Father Alzheimer disease Diabetes Mother No problems noted. Family/Other Mental health disorder Substance use disorder Social History Housing: House Alcohol intake: current Alcohol intake frequency: a few times a month Alcohol type: hard liquor Patient Tobacco Use Status: Current everyday Tobacco user Tobacco use type: Cigarette Cigarette Packs Per Day: 0.5 Cigarettes Per Day: 10 e-Cigarette/Vaping Use: Never Used Second Hand Smoke Exposure: Yes Substance Use Type: Marijuana service: No Current occupational status: unemployed Cognitive needs: No Hearing needs: No Vision needs: No Questionnaire PHQ-9 Over the last 2 weeks, how often have you been bothered by any of the following problems? 1. Little interest or pleasure in doing things: several days 2. Feeling down, depressed, or hopeless: more than half the days 3. Trouble falling or staying asleep, or sleeping too much: more than half the days 4. Feeling tired or having little energy: more than half the days 5. Poor appetite or overeating: not at all 6. Feeling bad about yourself - or that you are a failure or have let yourself or your family down: not at all 7. Trouble concentrating on things, such as reading the newspaper or watching television: nearly every day 8. Moving or speaking so slowly that other people could have noticed. Or the opposite - being so fidgety or restless that you have been moving around a lot more than usual: not at all 9. Thoughts that you would be better off or of hurting yourself in some way: not at all Total score: 10 Depression Screening Interpretation: Positive Depression Screening Follow-up: Existing condition and Follow-up Visit Requested Depression Screening Done: Yes 79371 - PHQ-9 Billing: Yes Source: Developed by Drs. Emile Edmonds, Terri Alcantar, Cesar Ahmadi and colleagues, with an educational shahbaz from [employer]. Thrive Questionnaire Date Thrive assessed: 12/27/24 I am a: Patient What is your living situation today?: I have a steady place to live Within the past 12 months, did the food you bought not last and you didn't have the money to get more?: Sometimes True Within the past 12 months, did you worry whether your food would run out before you got money to buy more?: Sometimes True Do you have trouble paying for medicines?: Yes Do you have trouble getting transportation to medical appointments?: Yes Do you have trouble paying your heating and electricity bill?: Yes Do you have trouble taking care of your child, family member or friend?: No Do you have trouble with day-to-day activities such as bathing, preparing meals, shopping, managing finances, etc.?: No Are you currently unemployed and looking for a job?: Yes Are you interested in more education?: No Please select the resources that you would like help with: Transportation Currently or been in a relationship where the following occur: No concerns reported THRIVE Score: 4 AUDIT C Alcohol Use Questionnaire (AUDIT-C) 1. How often do you have a drink containing alcohol?: 2-3 times a week 2. How many drinks containing alcohol do you have on a typical day when you are drinking?: 1 or 2 3. How often do you have six or more drinks on one occasion?: Never Total Score: 3 Score Reviewed/Action Taken: Yes TORIE-7 AMB Questionnaire TORIE-7 Date TORIE - 7 assessed: 12/27/24 Feeling nervous, anxious, or on edge: 1 = Several days Not being able to stop or control worryin = Several days Worrying too much about different things: 1 = Several days Trouble relaxin = Not at all Being so restless that it is hard to sit still: 0 = Not at all Becoming easily annoyed or irritable: 2 = More than half the days Feeling afraid as if something awful might happen: 0 = Not at all Total TORIE-7 score (0-4 normal; 5-9 mild; 10-14 moderate; 15-21 severe): 5 Source: Developed by Drs. Emile Edmonds, Terri Alcantar, Cesar Ahmadi and colleagues, with an educational shahbaz from [employer]. TORIE-7 Assessment Billing TORIE-7 Assessment Tool: TORIE-7 Assessment 99606 Review of Systems Const All systems reviewed & are unremarkable except as noted in HPI and below ENT Reports neck pain Card Denies chest pain at rest, Denies chest pain with activity, Denies edema, Denies irregular heart rhythm, Denies claudication, Denies dyspnea, Denies dyspnea on exertion, Denies orthopnea, Denies paroxysmal nocturnal dyspnea and Denies slow heart rate Resp Denies cough, Denies dyspnea and Denies dyspnea on exertion GI Denies abdominal pain, Denies change in bowel habits, Denies excessive flatus, Denies nausea and Denies vomiting Denies urinary hesitancy, Denies urinary incontinence and Denies urinary urgency Musc Reports neck pain Physical exam (Primary Care) Vital Signs: Last Vital Signs Pulse 65 08/03/25 14:50 BP 130/90 H 08/03/25 14:50 Pulse Ox 97 08/03/25 14:50 Oxygen Delivery Method Room Air 08/03/25 14:50 BMI result Body Mass Index 27.4 Tobacco/Smoking Status: Tobacco use Status Tobacco use date assessed 08/03/25 08/03/25 14:51 Patient Tobacco Use Status Current everyday Tobacco 08/03/25 14:51 Tobacco use type Cigarette 08/03/25 14:51 e-Cigarette/Vaping Use Never Used 08/03/25 14:51 PHQ-9: PHQ-9 Score PHQ-9: Total score 10 08/03/25 15:17 Depression Screening Interpretation: Positive Depression Screening Follow-up: Existing condition and Follow-up Visit Requested Thrive Assessment: Date of Thrive Assessment Date Thrive assessed 12/27/24 08/03/25 14:51 Currently or been in a relationship where the following occur: No concerns reported [facility] Head: Yes normal to inspection, Yes normocephalic and Yes atraumatic Ears: external ears normal Eyes General: appearance normal, both eyes and all related structures Eyelids: Yes eyelids normal Conjunctivae: conjunctivae normal Neck Neck: Yes normal visual inspection and Yes supple Resp Effort & Inspection: normal respiratory effort Auscultation: clear to auscultation bilaterally Cardio Jugular venous distension: no JVD Rate: regular rate Rhythm: regular rhythm Heart sounds: S1 normal heart sound present and S2 normal heart sound present GI Inspection: Yes normal to inspection Palpation (GI): Soft to palpation and nontender Auscultation: normal bowel sounds Skin General skin exam: no rashes or lesions noted Neuro General: no focal motor deficits Extrem General: Yes full ROM Psych Appearance: grossly normal Coding Level of Care Code Est Pt Level 3 (59389) Est Pt Prev Care 40-64y(15251) Diagnoses Physical exam Z00.00 Cigarette nicotine dependence without complication F17.210 Nicotine product type: cigarettes Substance use status: uncomplicated Cervical spondylosis M47.812 Family history of colon cancer Z80.0 Acute otitis media H66.90 Mild major depression F32.0 Alcoholism F10.20 Additional Codes TORIE-7 Assessment Billing - TORIE-7 Assessment Tool: TORIE-7 Assessment 46188 ([id number]) PHQ-9 - 06857 - PHQ-9 Billing: Yes ([id number]) Time Spent (min) 35 Assessment & Plan Assessment & Plan (1) Physical exam: Code(s): Z00.00 - Encounter for general adult medical examination without abnormal findings Category: Medical (2) Nicotine dependence: Code(s): F17.200 - Nicotine dependence, unspecified, uncomplicated Category: Medical Qualifiers: Nicotine product type: cigarettes Substance use status: uncomplicated Qualified Code(s): F17.210 - Nicotine dependence, cigarettes, uncomplicated (3) Cervical spondylosis: Code(s): M47.812 - Spondylosis without myelopathy or radiculopathy, cervical region Category: Medical (4) Family history of colon cancer: Code(s): Z80.0 - Family history of malignant neoplasm of digestive organs Category: Medical (5) Acute otitis media: Code(s): H66.90 - Otitis media, unspecified, unspecified ear Category: Medical (6) Mild major depression: Code(s): F32.0 - Major depressive disorder, single episode, mild Category: Medical (7) Alcoholism: Code(s): F10.20 - Alcohol dependence, uncomplicated Category: Medical Plan Plan Patient was informed and verbally consented to the use of an ambient scribe for clinic note documentation during this visit. 1. Preventative Care: Colon Cancer Screening A colonoscopy is recommended due to family history of colon cancer. 2. Otitis Media Amoxicillin is prescribed for 7 days to treat otitis media. 3. Neck pain Start PT. 4. Nicotine Dependence The patient is encouraged to continue nicotine replacement therapy to further reduce smoking. Orders: Orders PT Evaluation and Treatment Today M47.812 - Spondylosis without myelopathy or radiculopathy, cervical region Comprehensive [place]. Panel Fast Today Z00.00 - Encounter for general adult medical examination without abnormal findings Lipid Panel Today Z00.00 - Encounter for general adult medical examination without abnormal findings Referrals Open Access Screening Colonoscopy Referral Z12.12 - Encounter for screening for malignant neoplasm of rectum Medications: New amoxicillin 500 mg PO BID 14 caps 0RF 7 days H66.90 - Otitis media, unspecified, unspecified ear Refilled sumatriptan succinate 50 - 100 mg orally at onset of headache, may repeat in 2 hrs PRN; max 2 tabs per day or 4 tabs/week (may take with Tylenol) 12 tabs 6RF migraine headache 30 days propranolol ER 60 mg PO BEDTIME 30 caps 6RF 30 days omeprazole 20 mg PO QAM 90 caps 0RF for pain nicotine 1 patch transdermal Q24H 14 ea 0RF 14 days F17.200 - Nicotine dependence, unspecified, uncomplicated
--- OUTSIDE RECORDS SUMMARY | 2025-08-03 18:49 | XMS_ITS | Clinical Summary ---
Author Organization [employer] Address [address] [place] [address] Care Team Providers Care Precision Optics Technician Name Role Phone Unavailable Primary Care [...] Comments Depression Screening 1983 Lipid Panel 1983 Disability Screening 1983 Alcohol/Substance Use Screening 1995 Tobacco Screening 1995 Family Planning (PISQ) 1998 HPV Vaccines (1 - Male 3-dos e series) 1998 DTaP/Tdap/Td Vaccines (1 - Tdap) 2002 Hepatitis B Vaccines (1 of 3 - 19+ 3-dose series) 2002 COVID-19 Vaccine (1 - 2023-2 5 season) 2025 Influenza Vaccine (#1) 2025 Zoster Vaccines (1 of 2) 2033 RSV [...] patient's age to complete this topic Meningococcal B Vaccine Aged Out No l onger eligible based on patient's age to complete this topic Meningococcal Vaccine Aged Out No jonna ada eligible based on patient's age to complete this topic Pneumococcal Vaccine: Pediat rics (0 to 5 Years) and At-Risk Patients (6 to 49) Years Aged Out No longer eligible b ased on patient's age to complete this topic RSV under 20 months Aged Out No longe r eligible based on patient's age to complete this topic Rotavirus Vaccines Aged Out No longer eligible based on patient's age to complete this topic
--- OUTSIDE RECORDS SUMMARY | 2025-08-03 18:49 | XMS_ITS | Clinical Summary ---
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
== END 2025-08-03 15:25 | disposition home or self-care (01) ==
LOC: HO.HMCH 14:28
PROVIDERS: PCP Internal Medicine; Visit Provider Internal Medicine
DX: Z00.00 Encounter for general adult medical examination without abnormal findings (principal); H66.92 Otitis media, unspecified, left ear; F17.210 Nicotine dependence, cigarettes, uncomplicated; F10.20 Alcohol dependence, uncomplicated; M47.812 Spondylosis without myelopathy or radiculopathy, cervical region; Z80.0 Family history of malignant neoplasm of digestive organs; F32.0 Major depressive disorder, single episode, mild

== ENCOUNTER → 2025-08-03 14:28 | Outpatient (BNVA) | payer OTHER, SELFPAY | PROVIDERS: PCP Internal Medicine; Visit Provider Internal Medicine | DX: Z00.01 Encounter for general adult medical examination with abnormal findings (principal); H66.92 Otitis media, unspecified, left ear; M47.812 Spondylosis without myelopathy or radiculopathy, cervical region; F32.0 Major depressive disorder, single episode, mild; K21.9 Gastro-esophageal reflux disease without esophagitis; F10.20 Alcohol dependence, uncomplicated; F17.210 Nicotine dependence, cigarettes, uncomplicated; Z79.899 Other long term (current) drug therapy; Z80.0 Family history of malignant neoplasm of digestive organs; Z13.31 Encounter for screening for depression | CPT/HCPCS: 96127; 99212; 99396 ==

== ENCOUNTER 2025-10-11 10:00 | Outpatient (RCR) | payer OTHER, SELFPAY ==
[2025-08-30 10:18] VITALS: BP 151/95; PULSE 63; O2SAT 97
--- NOTE | 2025-08-30 12:59 | MHC.PT.EP ---
[facility] [place] Office [place] Office [place] Office [address] [place] [address] [address] [phone] F: [phone] F: [phone] F: [phone] F: [phone] Physical Therapy Plan of Care Date of Evaluation: 08/30/25 Date of Surgery: Diagnosis: CERVICAL SPONDYLOSIS Assessment: 40 YO MALE REF TO PT FOR CERVICAL SPONDYLOSIS- HE HAS A H/O TBI x 2 AND A MCA IN 2022- HE HAS HAD PROGRESSIVE CERV SXS SINCE THEN W INTERM MIGRAINES. THE Pt IS CURRENTLY OOW DUE TO NECK PAIN- HE IS Rt HAND DOMINANT. OBJECTIVE: DECR POSTURAL AWARENESS, LIMITED CERV AROM W (+) TISSUE TENSION IN SUSHIL SUBOCCIP/ CERV PS MM, POST RC/ MID BACK WEAKNESS, AND LIMITED DIMPLE W MORE PHYSICALLY DEMANDING ADLs/ SLEEPING/ CERV ROTAT Lt. ON CERV MRI, Mild multilevel degenerative spondyloarthropathy of the cervical spine as described in detail above. No overt spinal canal stenosis or nerve root compression. HE STATED HE HAS PAIN IN HIS Rt > Lt CERV/ UT-> Rt SH, BUT DENIES RADIC SXS INTO Rt UE. WE DISCUSSED PT POC AND THE Pt AGREES TO PROCEED, ADDRESSING THE ABOVE FINDINGS. 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 Manual therapy to restore motion and function. Therapeutic exercise to improve strength and flexibility. Neuromuscular re-education for posture and balance. Therapeutic activities to return to functional activities of daily living. Electronically signed by: CHRIS BONNER,PT Please sign and return to therapist. Thank you for your referral.
--- NOTE | 2025-10-24 11:32 | MHC.PT.DC ---
[facility] [place] Office [place] Office [place] Office [address] Raoul Ortiz [address] [phone] F: [phone] F: [phone] F: [phone] F: [phone] Physical Therapy Discharge Report Diagnosis: CERVICAL SPONDYLOSIS Date of Surgery: Date of Evaluation: 08/30/25 Date of Discharge: 10/24/25 Treatments to Date: 8 Cancellations to Date: 2 No Shows to Date: 6 Discharge Status: Improved Function Independent with HEP Patient Elected to Stop Visit Non-compliance Discharge Summary: AT LAST ATTENDED PT APPT, Pt PRESENTED WITH GENERAL SORENESS FROM [place] [employer]EL[employer]- HE HAD INCR TISSUE TENSION Rt PROX CERV/ UT/ LEV SCAP AND SCALENE MM , WHICH WAS EASED W MAN TECHN AND INCR STRETCHING. A FORMAL REASSESSMENT WAS NOT PERF THE Pt DID NOT SHOW FOR HIS LAST SCHED PT MAPPTS AND IS D/C THIS DATE PER THE PT DEPT ATTENDANCE POLICY, REVIEWED W AND Pt SIGNED ON EVAL DATE Electronically signed by: CHRIS BONNER,PT Please sign and return to therapist. Thank you for your referral.
== END 2025-10-24 11:32 | disposition home or self-care (01) ==
LOC: HO.PT 10:00
PROVIDERS: PCP Internal Medicine; Visit Provider Internal Medicine
DX: M47.812 Spondylosis without myelopathy or radiculopathy, cervical region (principal)
CPT/HCPCS: 97110; 97140; 97162